=== PATIENT | female | born 1950 | race Caucasian/White ===

== ENCOUNTER → 2016-11-21 | Outpatient (CLI) | payer BC ==
[~2016-11-21] MED LIST: ARIMIDEX1 MG PO; HYZAAR 50-12.51 EACH PO; LIPITOR40 MG PO; NORCO 5-325 MG1 TAB PO; NORCO 5-325 TA1 EACH PO; VITAMIN D-32000 UNI1 PO
== END | disposition disaster alternative care site (69) ==
LOC: GBCOE 13:49
DX: Z12.31 Encounter for screening mammogram for malignant neoplasm of breast (principal); R92.1 Mammographic calcification found on diagnostic imaging of breast; Z85.3 Personal history of malignant neoplasm of breast
CPT/HCPCS: G0202

== ENCOUNTER → 2016-11-25 | Outpatient (CLI) | payer BC | END | disposition disaster alternative care site (69) | LOC: GBCOE 13:12 | DX: R92.8 Other abnormal and inconclusive findings on diagnostic imaging of breast (principal); R92.1 Mammographic calcification found on diagnostic imaging of breast | CPT/HCPCS: G0206 ==

== ENCOUNTER → 2016-12-02 | Outpatient (CLI) | payer BC ==
--- NOTE | 2016-12-02 10:00 | NUR ---
[facility]. Introduced self and role of nurse navigator. Permission received for follow up call tomorrow.
--- NOTE | 2016-12-03 16:15 | NUR ---
Post breast biopsy follow up call. Minimal discomfort. Slight swelling, no drainage. No questions or concerns.
== END | disposition disaster alternative care site (69) ==
LOC: GPOC 11-28 13:00 → GBCOE 09:09 → GPOC 10:00 → GBCOE 10:00
PROC: 0HBT3ZX Excision of Right Breast, Percutaneous Approach, Diagnostic (ICD-10-PCS; principal; 2016-12-02)
DX: R92.1 Mammographic calcification found on diagnostic imaging of breast (principal)
CPT/HCPCS: J7050

== ENCOUNTER → 2016-12-25 | Day surgery (SDC) | payer BC ==
[~2016-12-25] VITALS: Ht 167.6 cm; Wt 97.1 kg
--- NOTE | ~2016-12-25 | OR ---
PATIENT'S NAME: RAFAEL [facility] AGE: 66 Y [address] ROOM: [place], [place] [address] LOCATION: [facility] ADMIT DATE: 12/25/2016 OR/Procedure Report DISCHARGE DATE: FAMILY PHYSICIAN: Elian Duncan MD ATTENDING PHYSICIAN: Papito Amaya SURGEON: Papito Amaya MD MILLER HELPER: Amparo Gonzales PA-C. DATE OF PROCEDURE: 12/25/2016 PREOPERATIVE DIAGNOSIS: Invasive left breast cancer. POSTOPERATIVE DIAGNOSIS: Invasive left breast cancer. PROCEDURE: 1. Left breast partial mastectomy. 2. Left axillary sentinel lymph node biopsy. 3. Injection of blue dye. FINDINGS: Buhler node was easily identified, this had counts of greater than 500 with background counts of less than 15. Both site markers were present within our partial mastectomy specimen. ESTIMATED BLOOD LOSS: Minimal. COMPLICATIONS: None. INDICATIONS: The patient is a 66-year-old female who had presented with an abnormality by imaging. She had biopsy of this, which revealed malignancy. We discussed wire localized lumpectomy with sentinel node biopsy with the patient and she wished to proceed. DESCRIPTION OF PROCEDURE: The patient was taken to the operating room. She was supine. She was given IV sedation preoperatively. She had been injected with nuclear colloid and a wire localization was performed. Once she was taken to the operating room, she was given sedation and general anesthesia was induced. 5 mL of dilute methylene blue were injected in the subareolar region. We used ultrasound to localize the tip of the wire, this was marked. Her breast was then prepped with ChloraPrep and sterilely draped. The axilla was attended to first. Using the Neoprobe for guidance, we made an incision in the left axilla, carried this into the subcutaneous tissues down to the axillary fat pad using electrocautery. A lymph node was present, this was blue and had counts of greater than 500 and consistent with the sentinel node. There were 2 other nodes immediately adjacent to this, these were also excised with a specimen. Ex vivo again counts greater than 500. We then examined the axilla, no further blue dye was visible. The background counts were less than PATIENT'S NAME: RAFAEL [facility] AGE: 66 Y [address] ROOM: [place], [place] [address] LOCATION: PD ADMIT DATE: 12/25/2016 OR/Procedure Report DISCHARGE DATE: FAMILY PHYSICIAN: Elian Duncan MD ATTENDING PHYSICIAN: Papito Amaya 15. The operative field was inspected, it appeared hemostatic. Deep dermal layers were approximated with 3-0 Vicryl suture and skin was closed with 4-0 Monocryl suture. Following this, the lumpectomy was attended to. A transverse incision was created and carried into the breast parenchyma using electrocautery. We dissected down to the wire superiorly, delivered the wire through the incision. The wire again was very tangential, extended a long way from its insertion site. We delivered this through the incision. We then dissected a core of tissue circumferentially around the wire. There was hematoma cavity present and some changes making clear identification of normal breast tissue somewhat difficult, however, we did dissect around the wire circumferentially and removed the specimen. The wire was completely encased in breast tissue; however, there was a firm area towards the tip of the wire. Because of this, we reexcised an inferior margin which essentially included the inferior medial margin. We also sent off a small portion of tissue as a new lateral margin. With the new superior and medial margin, this really extended to the superficial margin as well and again this was marked. The operative field was then inspected, it appeared hemostatic. We sent our specimen for x-ray. The clips were present within it. Once hemostasis was checked and obtained, the deep dermal layers were approximated with 3-0 Vicryl suture and skin was closed with 4-0 Monocryl suture. Steri-Strips and sterile dressings were placed. The patient was extubated and sent to recovery in good condition. PAPITO AMAYA MD BJO/modl /[id number] d: 12/25/161944 t: 01/01/171943, OPERATIVE SUMMARY
== END ==
LOC: GOPD 12-18
PROC: 0HBU0ZZ Excision of Left Breast, Open Approach (ICD-10-PCS; principal; 2016-12-25)
PROC: 07B60ZX Excision of Left Axillary Lymphatic, Open Approach, Diagnostic (ICD-10-PCS; 2016-12-25)
DX: C50.912 Malignant neoplasm of unspecified site of left female breast (principal); I10 Essential (primary) hypertension; E78.5 Hyperlipidemia, unspecified; E78.00 Pure hypercholesterolemia, unspecified; Z98.890 Other specified postprocedural states; Z88.0 Allergy status to penicillin; Z79.899 Other long term (current) drug therapy
CPT/HCPCS: A9520; J0690; J1100; J2001; J2250; J2405; J7120; Q9968